=== PATIENT | male | born 1985 | race African-American/Black ===

== ENCOUNTER 2022-01-05 15:31 | Emergency (ER) | payer SELFPAY ==
[~2022-01-05] VITALS: Ht 172.7 cm; Wt 73.0 kg
[2022-01-05 15:42] VITALS: BP 124/86
[2022-01-05] MEDS ORDERED: DOCUSATE SODIUM SUGAR FREE 100MG/10ML UDC NG ONE (15:45)
[2022-01-05] MEDS ORDERED: AMOX500T2 MT (18:07)
== END 2022-01-05 18:24 | disposition home or self-care (01) ==
LOC: ER 15:31
DX: T16.1XXA Foreign body in right ear, initial encounter (principal); H66.91 Otitis media, unspecified, right ear; X58.XXXA Exposure to other specified factors, initial encounter; Y93.89 Activity, other specified; Y92.018 Other place in single-family (private) house as the place of occurrence of the external cause
CPT/HCPCS: 99283

== ENCOUNTER 2022-02-01 13:22 | Emergency (ER) | payer SELFPAY ==
[~2022-02-01] VITALS: Ht 172.7 cm; Wt 73.0 kg
[~2022-02-01 13:22] MED LIST: AMOX500T2 MT
[2022-02-01 13:27] VITALS: BP 132/77
== END 2022-02-01 19:28 | disposition home or self-care (01) ==
LOC: ER 13:44
DX: H61.21 Impacted cerumen, right ear (principal)
CPT/HCPCS: 99281